=== PATIENT | female | born 1940 | race Caucasian/White ===

== ENCOUNTER 2018-06-11 07:27 | Emergency (ER) | payer MEDICARE, SELFPAY ==
[2018-06-11 07:39] VITALS: BP 160/60; PULSE 67; RESP 15; TEMP 36.5; O2SAT 100; BMI 23.3
--- NOTE | 2018-06-11 08:10 | DI.CT.S_ITS ---
PROCEDURE: CT HEAD/BRAIN WO CON INDICATIONS: 78 year-old woman with dizziness hit head on floor; loss of consciousness. TECHNIQUE: Noncontrast 4.5 mm thick angled axial sections acquired from the foramen magnum to the vertex, with coronal and sagittal reformats. For radiation dose reduction, the following was used: automated exposure control, adjustment of mA and/or kV according to patient size. COMPARISON: None. FINDINGS: Image quality: Excellent. CSF spaces: Basal cisterns are patent. No extra-axial fluid collections. The ventricles are symmetric in size and shape. Brain: No intracranial bleeds or masses. There is mild cerebral volume loss for age, with resultant ventricular and sulcal prominence. There are mild periventricular and deep white matter chronic small vessel ischemic changes. There is intracranial internal carotid artery atherosclerosis. Skull and face: Calvarium and visualized facial bones appear intact, without suspicious lesions. Sinuses: Visualized sinuses and mastoids are clear. IMPRESSION: 1. No acute intracranial abnormalities. 2. Cerebral volume loss and chronic microvascular ischemic changes. Dictated by: Estrada Shea M.D. on 06/11/2018 at 8:38 Approved by: Estrada Shea M.D. on 06/11/2018 at 8:39
[2018-06-11 08:17] LABS: Add Manual Diff / Slide Review NO; Basophils Percent Auto 0.7 % (0-2); Eosinophils Percent Auto 1.9 % (2-4); Hematocrit 40.6 % (36-46); Lymphocytes Percent Auto 19.6 % (25-40); Mean Corpuscular HGB Conc 34.4 % (30-36); Mean Corpuscular Hemoglobin 32.6 PG (26-34); Mean Corpuscular Volume 94.7 fL (80-100); Monocytes Percent Auto 8.9 % (3-14); Neutrophils Absolute Auto 4400 /uL (3000-5900); Neutrophils Percent Auto 68.9 % (50-75); Platelet Count 160 X10^3/uL (150-400); Red Blood Cell Count 4.29 X10^6/uL (4.0-5.2); Red Cell Distribution Width 13.8 % (11.6-14.8); White Blood Cell Count 6.3 X10^3/uL (4.5-11.0)
[2018-06-11 08:23] LABS: Alanine Aminotransferase 26 IU/L (9-52); Albumin 4.2 g/dL (3.5-5.0); Albumin Globulin Ratio 1.4 (1.0-2.8); Alkaline Phosphatase 54 U/L (38-126); Aspartate Aminotransferase 26 IU/L (14-36); BUN Creatinine Ratio 24.3 (6-22); Bilirubin Total 0.6 mg/dL (0.2-1.3); Blood Urea Nitrogen 17 mg/dL (7-17); Calcium 8.8 mg/dL (8.4-10.2); Carbon Dioxide 25 mmol/L (22-32); Chloride 100 mmol/L (98-107); Estimated Glomerular Filt Rate > 60.0 mL/min (>60); Globulin 2.9 g/dL (1.7-4.1); Glucose 103 mg/dL (80-110); HEMOLYSIS 19 (0-50); Potassium 3.7 mmol/L (3.4-5.1); Sodium 136 mmol/L (137-145); Total Protein 7.1 g/dL (6.3-8.2)
--- NOTE | 2018-06-11 08:26 | ED_ITS ---
HPI - Dizziness General Chief Complaint: Dizziness Stated Complaint: fainted this morning, dehyrated, anxiety Time Seen by Provider: 06/11/18 07:33 Source: patient Mode of arrival: ambulatory Limitations: no limitations History of Present Illness HPI Narrative: Patient is a 78-year-old female who presents with dizziness and lightheadedness. She got up to use the restroom this morning she felt extremely lightheaded as. She took her blood pressure noted that her systolic was in the 90s. They did call EMS however she did not go with them. She then used the restroom and fell slowly to the ground. Her witnessed it if she lost consciousness it was for under a minute. She quickly came to. She did hit her head. She is on Plavix. She says that her head got bruised from her glasses. She denies any vision changes or weakness. No nausea or vomiting. No chest pain or shortness of breath. She did notice some heart palpitations. MD complaint: lightheadedness Related Data Allergies Allergy/AdvReac Type Severity Reaction Status Date / Time acetaminophen Allergy Unknown Verified 06/11/18 07:39 [From TYLENOL-CODEINE #3] aspirin [ASPIRIN] Allergy Unknown Verified 06/11/18 07:39 codeine Allergy Unknown Verified 06/11/18 07:39 [From TYLENOL-CODEINE #3] diazepam [From VALIUM] Allergy Unknown Verified 06/11/18 07:39 tetracycline [TETRACYCLINE] Allergy Unknown Verified 06/11/18 07:39 Review of Systems Review of Systems All systems reviewed & are unremarkable except as noted in HPI and below Constitutional Denies chills, Denies fever(s), Denies lethargy and Denies weakness Cardiovascular Denies chest pain, Reports syncope, Denies irregular heart rhythm, Denies lightheadedness, Reports palpitations, Denies dyspnea, Denies dyspnea on exertion and Denies orthopnea Respiratory Denies cough, Denies dyspnea, Denies dyspnea on exertion and Denies wheezing Gastrointestinal Gastrointestinal: Denies abdominal pain, Denies change in bowel habits, Denies diarrhea, Denies nausea and Denies vomiting Musculoskeletal Denies back pain, Denies muscle weakness, Denies numbness and Denies tingling Neurologic Denies confusion, Reports syncope, Denies numbness, Denies tingling and Denies weakness Psychiatric Denies anxiety, Denies confusion, Denies depression, Denies homicidal ideation and Denies suicidal ideation Endocrine Reports palpitations Allergic/Immunologic Denies wheezing PFSH Medical History Hyperlipidemia (Acute) Hypertension (Acute) Hypothyroid (Acute) Social History Smoking Status: Never smoker Exam Initial Vital Signs Initial Vital Signs: Vital Signs Temperature 97.7 F 06/11/18 07:39 Pulse Rate 67 06/11/18 07:39 Respiratory Rate 15 06/11/18 07:39 Blood Pressure 160/60 H 06/11/18 07:39 Pulse Oximetry 100 06/11/18 07:39 Const General: cooperative and well developed Nutritional Appearance: well nourished Orientation: alert, awake, oriented x3 and not confused Neck Neck: normal visual inspection, trachea midline, No lymphadenopathy, No midline deformity and No JVD Lymphatic: No lymphedema Chest Chest: normal inspection of the chest Resp Effort & Inspection: normal respiratory effort, able to speak in complete sentences, no respiratory distress and no use of accessory muscles Auscultation: clear to auscultation bilaterally, no rales, no rhonchi and no wheezes Cardio Rate: regular rate Rhythm: regular rhythm Heart Sounds: no click, no gallops, no murmurs and no rubs Pulses: normal peripheral pulses Skin General: no rashes or lesions noted, No jaundice and No petechiae Neuro General: alert, oriented x3, gait normal and no focal motor deficits Speech: speech normal Motor: muscle tone normal throughout and strength 5/5 throughout Sensory Exam: no sensory deficits noted Coordination: [id number] test normal and [id number] test normal Scores NIH Stroke Scale Level of Conciousness: Alert, keenly responsive Ask month/age: Answers both questions correctly. Open/close eyes, close hand: Performs both tasks correctly Best gaze horizontal: Normal Visual gupta: No visual loss Facial palsy: Normal symetrical movement Left arm drift: No drift for full 10 sec Right arm drift: No drift for full 10 sec Left leg drift: No drift for full 10 sec Right leg drift: No drift for full 10 sec Limb ataxia: Absent Sensory on face/arms/legs: Normal, no sensory loss Best language: No aphasia, normal Dysarthria: Normal Extinction or inattention: No abnormality Total NIH Stroke scale score: 0 Course Orders Ordered: ED Orders 06/11/18 07:45 Complete Blood Count AUTO DIFF Stat Comprehensive Metabolic Panel Stat Troponin I Stat 06/11/18 08:10 CT head/brain wo con Stat 06/11/18 08:21 EKG-12 Lead Stat Discontinued Medications Sodium Chloride (Normal Saline 0.9%) 1,000 mls @ 1,000 mls/hr IV CONT JAYLA Last Admin: 06/11/18 08:28 Dose: 1,000 mls/hr Vital Signs - 8 hr 06/11/18 07:39 06/11/18 09:59 Temperature 97.7 F Pulse Rate 67 66 Respiratory Rate 15 20 Blood Pressure 160/60 H 154/70 H Pulse Oximetry 100 100 MDM - Dizziness Lab Data Attestation: I reviewed the patient's lab results. Result diagrams: 06/11/18 07:45 06/11/18 07:45 Lab Results 06/11/18 06/11/18 Range/Units 07:45 07:45 WBC 6.3 (4.5-11.0) X10^3/uL RBC 4.29 (4.0-5.2) X10^6/uL Hgb 14.0 (12.0-16.0) g/dL Hct 40.6 (36-46) % MCV 94.7 (80-100) fL MCH 32.6 (26-34) PG MCHC 34.4 (30-36) % RDW 13.8 (11.6-14.8) % Plt Count 160 (150-400) X10^3/uL Neut % (Auto) 68.9 (50-75) % Lymph % (Auto) 19.6 L (25-40) % [place] % (Auto) 8.9 (3-14) % Eos % (Auto) 1.9 L (2-4) % Baso % (Auto) 0.7 (0-2) % Neut # (Auto) 4400 (8985-9051) /uL Sodium 136 L (137-145) mmol/L Potassium 3.7 (3.4-5.1) mmol/L Chloride 100 (98-107) mmol/L Carbon Dioxide 25 (22-32) mmol/L BUN 17 (7-17) mg/dL Creatinine 0.70 (0.52-1.04) mg/dL Estimated GFR > 60.0 (>60) mL/min BUN/Creatinine Ratio 24.3 H (6-22) Glucose 103 (80-110) mg/dL Calcium 8.8 (8.4-10.2) mg/dL Total Bilirubin 0.6 (0.2-1.3) mg/dL AST 26 (14-36) IU/L ALT 26 (9-52) IU/L Alkaline Phosphatase 54 (38-126) U/L Troponin I < 0.012 (0.01-0.034) ng/mL Total Protein 7.1 (6.3-8.2) g/dL Albumin 4.2 (3.5-5.0) g/dL Globulin 2.9 (1.7-4.1) g/dL Albumin/Globulin Ratio 1.4 (1.0-2.8) Imaging Data CT scan - head: Radiologist's impression: PROCEDURE: CT HEAD/BRAIN WO CON INDICATIONS: 78 year-old woman with dizziness hit head on floor; loss of consciousness. TECHNIQUE: Noncontrast 4.5 mm thick angled axial sections acquired from the foramen magnum to the vertex, with coronal and sagittal reformats. For radiation dose reduction, the following was used: automated exposure control, adjustment of mA and/or kV according to patient size. COMPARISON: None. FINDINGS: Image quality: Excellent. CSF spaces: Basal cisterns are patent. No extra-axial fluid collections. The ventricles are symmetric in size and shape. Brain: No intracranial bleeds or masses. There is mild cerebral volume loss for age, with resultant ventricular and sulcal prominence. There are mild periventricular and deep white matter chronic small vessel ischemic changes. There is intracranial internal carotid artery atherosclerosis. Skull and face: Calvarium and visualized facial bones appear intact, without suspicious lesions. Sinuses: Visualized sinuses and mastoids are clear. IMPRESSION: 1. No acute intracranial abnormalities. 2. Cerebral volume loss and chronic microvascular ischemic changes. Dictated by: Estrada Shea M.D. on 06/11/2018 at 8:38 ECG Data Attestation: I personally reviewed and interpreted this ECG as follows: Prior ECG tracings: not available for review Interpretation: Normal sinus rhythm rate 61 no acute changes no ST elevation no T-wave inversion MDM Narrative Medical decision making narrative: Patient blood pressure has been normal while in the ED. It sounds as though she had a vasovagal syncopal reaction this morning. She does complain a lot of anxiety and stress going on in her life. Her primary care provider called in a prescription of Vistaril for her. She has not yet started it but will start taking it today. Discharge Plan Departure Patient Disposition: Home, Self-Care Clinical Impression: Vaso vagal episode Discharge Date/Time: 06/11/18 10:03 Interventions: ED Discharge Assessment Last Done: 06/11/18 09:59 Instructions: DI for Syncope in Adults (Fainting), Anxiety Disorders Activity Restrictions/Additional Instructions: *You have been diagnosed with vasovagal reaction *What to do: Likely from dehydration. Blood pressure remained stable. *Continue to take medications as directed -take hydralazine as previously prescribed by her provider you may take half a tablet if needed *Follow up with your primary care provider in 2-3 days *Return to ER if you should have chest pain, heart palpitations, shortness of breath, recurrent episodes or any new, worsening or concerning symptoms
[2018-06-11] MEDS: SODIUM CHLORIDE 0.9% 1,000 ML 1000 ML IV (08:28)
[2018-06-11 08:54] LABS: Troponin I < 0.012 ng/mL (0.01-0.034)
[2018-06-11 09:59] VITALS: BP 154/70; PULSE 66; RESP 20; O2SAT 100
--- NOTE | 2018-06-16 19:18 | PC.NURSE ---
pt call back questions 1&2 absolutely wonder
--- NOTE | 2018-07-12 01:01 | PC.NURSE ---
late entry 1000ml finished approximately 09:15.
== END 2018-06-11 10:03 | disposition home or self-care (01) ==
PROVIDERS: Emergency Provider Emergency Medicine
DX: R55 Syncope and collapse (principal)
CPT/HCPCS: 36591; 70450; 80053; 84484; 85025; 93005; 93010; 96360; 99283; 99285

== ENCOUNTER → 2018-06-28 12:43 | Outpatient (CLI) | payer MEDICARE, SELFPAY ==
--- NOTE | 2018-06-28 12:46 | DI.RAD.S_ITS ---
PROCEDURE: XR CHEST 2V INDICATIONS: back pain TECHNIQUE: 2 views of the chest were acquired. COMPARISON: None. FINDINGS: Surgical changes and devices: None. Lungs and pleura: No pleural effusions or pneumothorax. Lungs are clear. Mediastinum: Mediastinal contours are normal. Heart size is normal. Bones and chest wall: No suspicious bony abnormalities. Soft tissues appear unremarkable. IMPRESSION: No acute cardiopulmonary pathology. Dictated by: Ronald Wylie M.D. on 06/28/2018 at 13:32 Approved by: Ronald Wylie M.D. on 06/28/2018 at 13:36
[2018-06-28 13:26] LABS: Troponin I < 0.012 ng/mL (0.01-0.034)
== END ==
PROVIDERS: Visit Provider Physician Assistant
DX: M54.9 Dorsalgia, unspecified (principal)
CPT/HCPCS: 36415; 71046; 84484

== ENCOUNTER → 2020-07-27 18:49 | Outpatient (ROUT) | payer MEDICARE, SELFPAY ==
[2020-07-27 19:42] LABS: TSH w/ Reflex to FT4 5.87 uIU/mL (0.47-4.68)
[2020-07-27 20:01] LABS: Vitamin B12 844 pg/mL (239-931)
[2020-07-27 20:19] LABS: Free T4, Direct Thyroxine 1.53 ng/dL (0.78-2.19)
== END ==
PROVIDERS: PCP Internal Medicine; Visit Provider Internal Medicine
DX: E53.8 Deficiency of other specified B group vitamins (principal); E03.9 Hypothyroidism, unspecified
CPT/HCPCS: 82607; 84439; 84443

== ENCOUNTER 2021-04-30 20:03 | Emergency (ER) | payer MEDICARE, SELFPAY ==
[2021-04-30] VITALS (12 sets, daily range): BP systolic 130–176; BP diastolic 57–76; PULSE 62–67; RESP 15–27; TEMP 36.7; O2SAT 91–98; BMI 23.8
--- NOTE | 2021-04-30 20:10 | ED.AMS ---
HPI - Altered Mental Status General Chief Complaint: Neuro Symptoms/Deficit Stated Complaint: Feeling off Poss. Alergic Reation Time Seen by Provider: 04/30/21 20:08 Source: patient and EMS Mode of arrival: EMS Limitations: no limitations History of Present Illness HPI narrative: 81-year-old female nonsmoker with history of hypertension and restless legs syndrome presents with a variety of symptoms that have been present for approximately 2 weeks including agitation, feeling fidgety, anxious and generally off. She continued to feel that way over the course of the day but became a bit flushed at 1 point earlier in the day and felt as if she may pass out which prompted her to call for transportation and evaluation. She states her symptoms started soon after increasing her dosing of it a restless leg medication. She has been in touch with her primary care provider who is been talking about switching her dosing back but has been hesitant. She denies any chest pain or shortness of breath. She has had no fever or chills. She denies nausea, vomiting or diarrhea. Consistency of symptoms: waxing and waning Associated symptoms: denies other symptoms Related Data Home Medications Medication Instructions Recorded Confirmed amlodipine 5 mg tablet 5 mg PO DAILY 06/28/18 06/28/18 clopidogrel 75 mg tablet 75 mg PO DAILY 06/28/18 06/28/18 cyclosporine 0.05 % eye drops in a EYE-BOTH each 06/28/18 06/28/18 dropperette levothyroxine 88 mcg tablet 88 mcg PO DAILY 06/28/18 06/28/18 losartan 100 mg tablet 100 mg PO DAILY 06/28/18 06/28/18 melatonin 5 mg tablet 2.5 mg PO BEDTIME PRN tab 06/28/18 06/28/18 rosuvastatin 20 mg tablet 20 mg PO DAILY 06/28/18 06/28/18 pramipexole 0.5 mg PO QPM 04/30/21 04/30/21 Allergies Allergy/AdvReac Type Severity Reaction Status Date / Time acetaminophen Allergy Unknown Verified 04/30/21 20:44 [From TYLENOL-CODEINE #3] aspirin [ASPIRIN] Allergy Unknown Verified 04/30/21 20:44 codeine Allergy Unknown Verified 04/30/21 20:44 [From TYLENOL-CODEINE #3] diazepam [From VALIUM] Allergy Unknown Verified 04/30/21 20:44 tetracycline [TETRACYCLINE] Allergy Unknown Verified 04/30/21 20:44 Review of Systems Constitutional Constitutional: Denies chills, Denies fatigue, Denies fever(s), Denies frequent falls, Denies lethargy and Denies weakness Eyes Eyes: Denies change in vision, Denies eye discharge, Denies irritation and Denies loss of vision ENT Ears, Nose, Mouth, and Throat: Denies change in voice, Denies dizziness, Denies neck pain, Denies sore throat and Denies throat swelling Cardiovascular Cardiovascular: Denies chest pain, Denies irregular heart rhythm, Denies lightheadedness, Denies palpitations, Denies dyspnea, Denies dyspnea on exertion and Denies orthopnea Respiratory Respiratory: Denies cough, Denies dyspnea, Denies dyspnea on exertion and Denies wheezing Gastrointestinal Gastrointestinal: Denies abdominal pain, Denies change in bowel habits, Denies diarrhea, Denies nausea and Denies vomiting Musculoskeletal Musculoskeletal: Denies neck pain and Denies numbness Integumentary/Breasts Skin/Breast: Denies pruritus, Denies erythema, Denies rash and Denies wounds Neurologic Neurologic: Denies behavioral changes, Denies confusion, Denies dizziness, Denies frequent falls, Denies loss of vision, Denies numbness and Denies weakness Psychiatric Psychiatric: Reports anxiety, Denies behavioral changes, Denies confusion, Denies depression, Denies homicidal ideation and Denies suicidal ideation Endocrine Endocrine: Denies fatigue, Denies flushing and Denies palpitations Hematologic/Lymphatic Hematologic/Lymphatic: Denies easy bruising Allergic/Immunologic Allergic/Immunologic: Denies urticaria, Denies throat swelling and Denies wheezing Patient History Medical History Hyperlipidemia Hypertension Hypothyroid Social History Smoking Status: Never smoker Smoking Status: Never smoker Substance Use Type: does not use Exam Narrative Exam Narrative: GENERAL: [[age]] year old patient appears stated age. Well-developed patient, in mild distress. anxious, fidgety HEAD: Atraumatic. Normocephalic. EYES: Pupils equal round and reactive. Extraocular motions intact. No scleral icterus. No injection or drainage. ENT: Nose without bleeding, purulent drainage. Throat without erythema, tonsillar hypertrophy or exudate. Airway patent. NECK: Trachea midline. Non tender CARDIOVASCULAR: Regular rate and rhythm without murmurs, gallops, or rubs. RESPIRATORY: Clear to auscultation. Breath sounds equal bilaterally. No wheezes, rales, or rhonchi. GASTROINTESTINAL: Abdomen soft, non-tender, nondistended. EXTREMITIES: No edema or joint tenderness. BACK: Nontender without deformity or crepitance. No flank tenderness. NEURO: AOx3. SKIN: No rash or erythema of visible areas Initial Vital Signs Initial Vital Signs: Vital Signs Temperature 98.1 F 04/30/21 20:22 Pulse Rate 66 04/30/21 20:22 Respiratory Rate 18 04/30/21 20:22 Blood Pressure 143/57 H 04/30/21 20:22 Pulse Oximetry 98 04/30/21 20:22 Course Orders Ordered: ED Orders 04/30/21 22:13 Troponin I Stat Discontinued Medications Sodium Chloride (Normal Saline 0.9%) 1,000 mls @ 125 mls/hr IV CONT JAYLA Last Infusion: 04/30/21 23:45 Dose: 0 mls/hr Documented by: Admin: 04/30/21 20:39 Dose: 125 mls/hr Documented by: GLO Vital Signs Vital signs: Vital Signs - 8 hr 04/30/21 22:30 04/30/21 23:00 04/30/21 23:22 Pulse Rate 65 63 66 Respiratory Rate 15 16 19 Blood Pressure 150/68 H 134/65 130/63 Pulse Oximetry 91 91 94 04/30/21 23:30 Pulse Rate 65 Respiratory Rate 18 Blood Pressure 139/68 Pulse Oximetry 93 MDM - Altered Mental Status Lab Data Result diagrams: 04/30/21 20:46 04/30/21 20:46 Labs: Lab Results 04/30/21 04/30/21 04/30/21 Range/Units 20:46 20:46 20:46 WBC 7.3 (4.5-11.0) X10^3/uL RBC 4.37 (4.0-5.2) X10^6/uL Hgb 13.9 (12.0-16.0) g/dL Hct 41.9 (36-46) % MCV 95.9 (80-100) fL MCH 31.8 (26-34) PG MCHC 33.2 (30-36) % RDW 13.6 (11.6-14.8) % Plt Count 204 (150-400) X10^3/uL Neut % (Auto) 67.1 (50-75) % Lymph % (Auto) 21.5 L (25-40) % [place] % (Auto) 8.2 (3-14) % Eos % (Auto) 2.6 (2-4) % Baso % (Auto) 0.6 (0-2) % Neut # (Auto) 4900 (9327-1818) /uL Lymph # (Auto) 1600 (1206-4539) /uL [place] # (Auto) 600 (0-900) /uL Eos # (Auto) 200 (0-450) /uL Baso # (Auto) 0 (0-100) /uL Sodium 139 (137-145) mmol/L Potassium 3.8 (3.4-5.1) mmol/L Chloride 103 (98-107) mmol/L Carbon Dioxide 28 (22-32) mmol/L BUN 24 H (7-17) mg/dL Creatinine 0.79 (0.52-1.04) mg/dL Estimated GFR > 60.0 (>60) mL/min BUN/Creatinine Ratio 30.4 H (6-22) Glucose 124 H (80-110) mg/dL Calcium 9.6 (8.4-10.2) mg/dL Magnesium 2.2 (1.6-2.3) mg/dL Total Bilirubin 0.4 (0.2-1.3) mg/dL AST 28 (14-36) IU/L ALT 23 (<35) IU/L Alkaline Phosphatase 63 (38-126) U/L Total Creatine Kinase 42 (30-135) U/L CK-MB (CK-2) TNP CK-MB (CK-2) Rel Index TNP Troponin I < 0.012 (0.01-0.034) ng/mL Total Protein 7.0 (6.3-8.2) g/dL Albumin 4.3 (3.5-5.0) g/dL Globulin 2.7 (1.7-4.1) g/dL Albumin/Globulin Ratio 1.6 (1.0-2.8) Ethyl Alcohol < 10 ( - 10) mg/dL 06/26/21 Range/Units 22:13 WBC (4.5-11.0) X10^3/uL RBC (4.0-5.2) X10^6/uL Hgb (12.0-16.0) g/dL Hct (36-46) % MCV (80-100) fL MCH (26-34) PG MCHC (30-36) % RDW (11.6-14.8) % Plt Count (150-400) X10^3/uL Neut % (Auto) (50-75) % Lymph % (Auto) (25-40) % [place] % (Auto) (3-14) % Eos % (Auto) (2-4) % Baso % (Auto) (0-2) % Neut # (Auto) (4131-4013) /uL Lymph # (Auto) (9494-4045) /uL [place] # (Auto) (0-900) /uL Eos # (Auto) (0-450) /uL Baso # (Auto) (0-100) /uL Sodium (137-145) mmol/L Potassium (3.4-5.1) mmol/L Chloride (98-107) mmol/L Carbon Dioxide (22-32) mmol/L BUN (7-17) mg/dL Creatinine (0.52-1.04) mg/dL Estimated GFR (>60) mL/min BUN/Creatinine Ratio (6-22) Glucose (80-110) mg/dL Calcium (8.4-10.2) mg/dL Magnesium (1.6-2.3) mg/dL Total Bilirubin (0.2-1.3) mg/dL AST (14-36) IU/L ALT (<35) IU/L Alkaline Phosphatase (38-126) U/L Total Creatine Kinase (30-135) U/L CK-MB (CK-2) CK-MB (CK-2) Rel Index Troponin I < 0.012 (0.01-0.034) ng/mL Total Protein (6.3-8.2) g/dL Albumin (3.5-5.0) g/dL Globulin (1.7-4.1) g/dL Albumin/Globulin Ratio (1.0-2.8) Ethyl Alcohol ( - 10) mg/dL Imaging Data CT scan - head: Radiologist's Impression: [facility] [place] [id number] Scan ReportSigned Patient: Anne-Marie Bond R#: [id number]: 1940cct:[id number]/Sex: 81 / FDate of Service: 04/30/21Loc: EDAccession Number: [id number] Procedure: CT head/brain wo con Ordering Provider: Jeff Hadley D.O. PROCEDURE: CT HEAD/BRAIN WO CON INDICATIONS: altered, headache TECHNIQUE: Noncontrast 4.5 mm thick angled axial sections acquired from the foramen magnum to the vertex, with coronal and sagittal reformats. For radiation dose reduction, the following was used: automated exposure control, adjustment of mA and/or kV according to patient size. COMPARISON: [facility], CT, CT HEAD/BRAIN WO CON, 06/11/2018, 8:22. FINDINGS: Image quality: Excellent. CSF spaces: Basal cisterns are patent. No extra-axial fluid collections. The ventricles are symmetric in size and shape. Brain: No intracranial bleeds or masses. There is cerebral volume loss for age, with resultant ventricular and sulcal prominence. There are periventricular and deep white matter chronic small vessel ischemic changes. There is intracranial internal carotid artery atherosclerosis. Skull and face: Calvarium and visualized facial bones appear intact, without suspicious lesions. Sinuses: Visualized sinuses and mastoids are clear. IMPRESSION: 1. No acute intracranial process. 2. Moderate atrophy and chronic microvascular ischemic changes. Dictated by: Sharona Hannon M.D. on 04/30/2021 at 21:20 MDM Narrative Medical decision making narrative: patient is very well-appearing and has a reassuring physical exam and labs. It seems very likely that her symptoms are related to increased dosing of her medications. I have encouraged her to go back to her prior dosing and follow closely with her doctor. She has been given return precautions and has had questions answered to her apparent satisfaction Discharge Plan Departure Patient Disposition: Home Clinical Impression: Medication adverse effect Qualifiers: Encounter type: initial encounter Qualified Code(s): T50.905A - Adverse effect of unspecified drugs, medicaments and biological substances, initial encounter Instructions: DI for Adverse Drug Reaction -- Other Activity Restrictions/Additional Instructions: *You have been diagnosed with [Multiple symptoms likely a consequence of medication reaction. your labs, CT scan and physical exam are very reassuring ] *What to do: *Please resume your previous dosing of Pramipexole. Otherwise, please continue to take your regular medications as directed. [ ] New medication prescriptions sent to your pharmacy: [ ] [ ] New medication written as a paper prescription [x ] No new medications given *Please follow up with your primary care provider in 2-3 days, call for an appointment. Let them know you were seen in the Emergency Department and that we ask that you be seen in follow up. We will electronically transmit a record of today's note if your PCP is in our system *If you do not have a primary care provider please contact the [facility] Resource line at [phone]. They will ask some questions about your medical history and help get you set up with a doctor in the community. *Return to Emergency Department if you should have any new, worsening or concerning symptoms, such as [fever greater than 101 F, shaking chills, worsening pain, persistent vomiting or other bothersome symptoms] Prescriptions: No Action levothyroxine [Synthroid] 88 mcg tablet 88 mcg PO DAILY RF: 0 cyclosporine [Restasis] 0.05 % dropperette EYE-BOTH RF: 0 losartan 100 mg tablet 100 mg PO DAILY RF: 0 clopidogrel [Plavix] 75 mg tablet 75 mg PO DAILY RF: 0 rosuvastatin [Crestor] 20 mg tablet 20 mg PO DAILY RF: 0 amlodipine 5 mg tablet 5 mg PO DAILY RF: 0 melatonin 5 mg tablet 2.5 mg PO BEDTIME PRNRF: 0 pramipexole 0.5 mg Tablet 0.5 mg PO QPM RF: 0 Referrals: Sam Robbins MD [Primary Care Provider] -
[2021-04-30] MEDS: SODIUM CHLORIDE 0.9% 1,000 ML 125 ML IV (20:39)
[2021-04-30 21:00] LABS: Add Manual Diff / Slide Review NO; Basophils Absolute Auto 0 /uL (0-100); Basophils Percent Auto 0.6 % (0-2); Eosinophils Absolute Auto 200 /uL (0-450); Eosinophils Percent Auto 2.6 % (2-4); Hematocrit 41.9 % (36-46); Hemoglobin 13.9 g/dL (12.0-16.0); Lymphocytes Absolute Auto 1600 /uL (1100-4500); Lymphocytes Percent Auto 21.5 % (25-40); Mean Corpuscular HGB Conc 33.2 % (30-36); Mean Corpuscular Hemoglobin 31.8 PG (26-34); Mean Corpuscular Volume 95.9 fL (80-100); Monocytes Absolute Auto 600 /uL (0-900); Monocytes Percent Auto 8.2 % (3-14); Neutrophils Absolute Auto 4900 /uL (1500-7000); Neutrophils Percent Auto 67.1 % (50-75); Platelet Count 204 X10^3/uL (150-400); Red Blood Cell Count 4.37 X10^6/uL (4.0-5.2); Red Cell Distribution Width 13.6 % (11.6-14.8); White Blood Cell Count 7.3 X10^3/uL (4.5-11.0)
[2021-04-30 21:07] LABS: Ethanol (ETOH) < 10 mg/dL
[2021-04-30 21:08] LABS: Alanine Aminotransferase 23 IU/L (<35); Albumin 4.3 g/dL (3.5-5.0); Albumin Globulin Ratio 1.6 (1.0-2.8); Alkaline Phosphatase 63 U/L (38-126); Aspartate Aminotransferase 28 IU/L (14-36); BUN Creatinine Ratio 30.4 (6-22); Bilirubin Total 0.4 mg/dL (0.2-1.3); Blood Urea Nitrogen 24 mg/dL (7-17); Calcium 9.6 mg/dL (8.4-10.2); Carbon Dioxide 28 mmol/L (22-32); Chloride 103 mmol/L (98-107); Creatine Kinase 42 U/L (30-135); Estimated Glomerular Filt Rate > 60.0 mL/min (>60); Globulin 2.7 g/dL (1.7-4.1); Glucose 124 mg/dL (80-110); HEMOLYSIS 16 (0-50); Magnesium 2.2 mg/dL (1.6-2.3); Potassium 3.8 mmol/L (3.4-5.1); Sodium 139 mmol/L (137-145)
[2021-04-30 21:19] LABS: Troponin I < 0.012 ng/mL (0.01-0.034)
[2021-04-30 22:50] LABS: Troponin I < 0.012 ng/mL (0.01-0.034)
== END 2021-04-30 23:51 | disposition home or self-care (01) ==
PROVIDERS: Emergency Provider Emergency Medicine; PCP Internal Medicine
DX: R41.82 Altered mental status, unspecified (principal); R51.9 Headache, unspecified; T50.905A Adverse effect of unspecified drugs, medicaments and biological substances, initial encounter
CPT/HCPCS: 36415; 70450; 80053; 80320; 82550; 83735; 84484; 85025; 96360; 96361; 99284